=== PATIENT | female | born 1940 | race Caucasian/White ===

== ENCOUNTER 2019-12-15 15:38 | Inpatient (IN) ==
--- OUTSIDE RECORDS SUMMARY | 2019-12-15 15:43 | External Medical Summary | Continuity of Care Document ---
:1940 Author Name Aysha Estes, Provider Address Unavailable Unavailable , Care Team Providers Name Role Phone Unavailable Unavailable Unavailable PCP, UNKNOWN Unavailable Unavailable Problems Active medical history not documented Allergies and Adverse Reactions Allergy history not documented Medications Medications not documented Procedures Procedures not documented Immunizations Immunizations not documented Plan of Treatment Planned Observations Planned Goals not documented Results No Known Results Results not documented
[2019-12-15] MEDS ORDERED: SODIUM CHLORIDE 0.9% 1000ML 1,000 ML IV ONE (15:54)
[2019-12-15] MEDS ORDERED: LEVOFLOXACIN/D5W 750 MG/150 ML BAG IV STA (15:56)
[2019-12-15] MEDS ORDERED: cefTRIAXone SODIUM 1,000 MG/50 ML BAG IV STA (15:56)
--- NOTE | 2019-12-15 16:07 | Emergency Department Note ---
Impression & Plan Sepsis, PSP (progressive supranuclear palsy), Aspiration pneumonia, Elevated lactic acid level ED Provider Note NAME: CANDY HOUSTON AGE: 79 SEX: F : 1940 ARRIVES VIA: Walk-In INFORMANT: Patient ED PROVIDER(S): Robbi Cage DO CHIEF COMPLAINT: Pain and weakness HPI: Patient is a 79-year-old female with progressive supranuclear palsy presents the ER with her daughter at bedside. Patient has been moaning more than usual. She has not had a bowel movement in the past week. Patient and daughter deny any headache, cough, or runny nose. Patient denies any chest pain. She does admit to belly pain. She is unable to localize or verbalize anything else. Family member notes no bowel movement for the past week. She admits to pain with urination as well. History is limited secondary to patient being nonverbal and mentation. ROS: History is limited secondary to progressive supranuclear palsy PAST MEDICAL HISTORY:See Below PAST SURGICAL HISTORY:See Below FAMILY HISTORY:See Below SOCIAL HISTORY:See Below HOME MEDICATIONS:See Below ALLERGIES:See Below VITALS:See Below PHYSICAL EXAMINATION: GENERAL: Ill-appearing, cachectic, sitting up in bed on nasal cannula EYE EXAM: normal conjunctiva. OROPHARYNX: mucous membranes are dry NECK: supple, no nuchal rigidity, no adenopathy, non-tender LUNGS: Rhonchi bilaterally. Normal chest wall mechanics HEART: Tachycardic, S1 normal and S2 normal ABDOMEN: abdomen soft, non-tender, normo-active bowel sounds, no masses, no rebound or guarding. BACK: Back is symmetrical on inspection and there is no deformity, no midline tenderness, no CVA tenderness. UPPER EXTREMITIES: upper extremities are grossly normal. LOWER EXTREMITIES: No pitting edema. NEURO EXAM: Awake intermittently answering questions yes or no. MEDICAL DECISION MAKING: Patient is a 79-year-old female chronically ill-appearing with a past medical history of PSP the presents the ER hypoxic, tachycardic and slightly hypotensive. IV was established blood work was obtained. Patient was placed on nasal cannula. Pulse ox came up from 80 to 95%. Labs show no significant leukocytosis but a mild anemia at 11. INR was unremarkable. BMP with a slightly elevated CO2 of 58. BMP with a creatinine of 0.53. Lactate was elevated 2.4. LFTs bilirubin and troponin were unremarkable. UA was negative. Chest x-ray shows a right lower lobe infiltrate which I do favor secondary to aspiration as she has trouble swallowing. CT abdomen pelvis shows a large amount of constipation and pneumonia. Patient was given IV Levaquin and Rocephin. Patient was given 1 L IV fluids and heart rate trended down from 1 30-100. Family was updated bedside patient was admitted for further work-up. Triage Nursing notes reviewed. Prior medical records reviewed Vital Signs: reviewed and remarkable for hypoxic, tachycardic Differential diagnosis: Differential diagnosis includes etiologies such as sepsis, UTI, pneumonia, metabolic, electrolyte abnormalities, cardiac sources, intracerebral event, toxicologic, neurological, as well as others were entertained. ER treatment provided: See below Diagnostics interpreted by me: ECG: Sinus tachycardia rate of 129 Normal axis No PVCs ST depressions in the lateral leads DWI in the high lateral leads LVH Cardiac Monitoring: An order was placed for continuous cardiac monitoring. The monitor shows a rate of 128 with sinus rhythm. Laboratory studies: As stated above and show below. Imaging studies: Portable AP upright 1 view of the chest shows focal right lower lobe infiltrate CT abdomen pelvis shows large amount of constipation and pneumonia Consultation(s): Discussed with hospitalist for admission ED COURSE: Procedures: none Critical Care: I have personally spent 40 minutes of critical care time in the direct management of this patient. This includes bedside care, interpretation of diagnostic studies, and testing, discussion with consultants, patient, and family members, and other required patient management activities. This 40 minutes is in excess of all separately billable procedures. Past Med/Surg History Social History Smoking Status: Unknown if ever smoked Allergies Allergies Allergy/AdvReac Type Severity Reaction Status Date / Time adhesive Allergy Unknown TAPE - RXN Verified 12/15/19 16:22 UNKNOWN aspirin Allergy Unknown UNKN Verified 12/15/19 16:22 capsaicin Allergy Unknown UNKNOWN Verified 12/15/19 16:22 diclofenac Allergy Unknown UNKNOWN Verified 12/15/19 16:22 Diclopak Allergy Unknown UNKNOWN Verified 05/24/13 13:06 ibuprofen Allergy Unknown CHANGE IN Verified 12/15/19 16:22 MENTAL STATUS latex Allergy Unknown UNKNOWN Verified 12/15/19 16:22 naproxen Allergy Unknown CHANGE IN Verified 12/15/19 16:22 MENTAL STATUS,MADE FEEL CRAZY Home Meds Home Medications Medication Instructions Recorded Confirmed acetaminophen [Acetaminophen Extra 500 - 1,000 mg PO TID PRN 12/15/19 12/15/19 Strength] carbidopa-levodopa 0.5 tab PO DAILY 12/15/19 12/15/19 carbidopa-levodopa 1 tab PO BID 12/15/19 12/15/19 cholecalciferol (vitamin D3) 50 mcg PO DAILY 12/15/19 12/15/19 docusate sodium [Colace] 100 mg PO QAM PRN 12/15/19 12/15/19 levothyroxine [Synthroid] 25 mcg PO QAM 12/15/19 12/15/19 lorazepam 0.5 mg PO DAILY PRN 12/15/19 12/15/19 magnesium hydroxide [Milk of 30 ml PO QAM PRN 12/15/19 12/15/19 Magnesia] quetiapine 25 mg PO QAM 12/15/19 12/15/19 quetiapine 50 mg PO BID 12/15/19 12/15/19 scopolamine base 1 patch TRANSDERMAL UD 12/15/19 12/15/19 Results & Data (ED) Vital Signs Vital Signs - 24 hr 12/15/19 15:41 12/15/19 15:48 12/15/19 15:52 Temperature 37.4 C Temperature Source Oral Pulse Rate 131 H 131 H 130 H Pulse Rate from SpO2 Sensor Respiratory Rate 10 L Respiratory Depth Normal Blood Pressure 99/61 L 92/60 L Blood Pressure Mean 73 75 Pulse Oximetry 81 L Oxygen Delivery Method Room Air Oxygen Flow Rate Sepsis Recent Fever Within 48 Hours No Sepsis New/Unexplained Change in Mental Status No Sepsis Action Taken by Nursing Physician Notified 12/15/19 16:00 12/15/19 16:30 12/15/19 16:45 Temperature Temperature Source Pulse Rate 124 H 119 H 113 H Pulse Rate from SpO2 Sensor 130 H 120 H 111 H Respiratory Rate Respiratory Depth Blood Pressure 99/75 L 127/94 Blood Pressure Mean 83 108 Pulse Oximetry 99 100 100 Oxygen Delivery Method Oxygen Flow Rate Sepsis Recent Fever Within 48 Hours Sepsis New/Unexplained Change in Mental Status Sepsis Action Taken by Nursing 12/15/19 16:57 12/15/19 17:00 12/15/19 17:15 Temperature 36.7 C Temperature Source Rectal Pulse Rate 112 H 110 H Pulse Rate from SpO2 Sensor 111 H 112 H Respiratory Rate Respiratory Depth Blood Pressure 126/69 Blood Pressure Mean 88 Pulse Oximetry 100 100 Oxygen Delivery Method Oxygen Flow Rate Sepsis Recent Fever Within 48 Hours Sepsis New/Unexplained Change in Mental Status Sepsis Action Taken by Nursing 12/15/19 17:30 12/15/19 17:45 12/15/19 18:00 Temperature Temperature Source Pulse Rate 108 H 109 H 106 H Pulse Rate from SpO2 Sensor 107 H 106 H 107 H Respiratory Rate Respiratory Depth Blood Pressure 113/68 104/65 Blood Pressure Mean 84 84 Pulse Oximetry 100 92 100 Oxygen Delivery Method Oxygen Flow Rate Sepsis Recent Fever Within 48 Hours Sepsis New/Unexplained Change in Mental Status Sepsis Action Taken by Nursing 12/15/19 18:15 12/15/19 18:30 12/15/19 19:00 Temperature Temperature Source Pulse Rate 105 H 109 H 107 H Pulse Rate from SpO2 Sensor 103 H 108 H 108 H Respiratory Rate Respiratory Depth Blood Pressure 112/69 114/72 Blood Pressure Mean 84 84 Pulse Oximetry 100 100 100 Oxygen Delivery Method Nasal Cannula Oxygen Flow Rate 3 Sepsis Recent Fever Within 48 Hours Sepsis New/Unexplained Change in Mental Status Sepsis Action Taken by Nursing 12/15/19 19:30 12/15/19 20:00 Temperature Temperature Source Pulse Rate 103 H 102 H Pulse Rate from SpO2 Sensor 102 H 102 H Respiratory Rate 20 22 Respiratory Depth Blood Pressure 112/70 110/66 Blood Pressure Mean 84 76 Pulse Oximetry 100 100 Oxygen Delivery Method Nasal Cannula Nasal Cannula Oxygen Flow Rate 3 3 Sepsis Recent Fever Within 48 Hours Sepsis New/Unexplained Change in Mental Status Sepsis Action Taken by Nursing Laboratory Data Result diagrams: 12/15/19 16:00 12/15/19 16:00 Lab Results 12/15/19 12/15/19 12/15/19 Range/Units 16:00 16:00 16:00 WBC 8.54 (4.8-10.8) K/uL RBC 3.70 L (4.2-5.4) M/uL Hgb 11.4 L (12.0-16.0) g/dL POC Hgb (12.0-16.0) g/dl Hct 36.1 L (37-47) % POC Hct (37-47) % MCV 97.6 (80-100) fL MCH 30.8 (25-34) pg MCHC 31.6 L (32-36) g/dL RDW Std Deviation 53.1 H (36.4-46.3) fL RDW Coeff of Iliana 14.8 H (11.5-14.5) % Plt Count 319 (130-400) K/uL MPV 9.8 (7.4-10.4) fL Immature Gran % (Auto) 0.1 % Neut % (Auto) 92.7 % Lymph % (Auto) 3.7 % Snyder % (Auto) 3.4 % Eos % (Auto) 0.1 % Baso % (Auto) 0.0 % Neut # (Auto) 7.91 H (1.4-6.5) K/uL Lymph # (Auto) 0.32 L (1.2-3.4) K/uL Snyder # (Auto) 0.29 (0.11-0.59) K/uL Eos # (Auto) 0.01 (0-0.5) K/uL Baso # (Auto) 0.00 (0-0.2) K/uL Immature Gran # (Auto) 0.01 (0.00-0.02) K/uL PT 11.5 (9.0-12.0) Seconds INR 1.1 (0.9-1.1) APTT 29.6 (21.0-31.0) Seconds PTT Ratio 1.1 VBG pH (7.36-7.41) VBG pCO2 (38-50) mmHg VBG pO2 mmHg VBG HCO3 mmol/L VBG O2 Saturation % VBG Base Excess mEq/L Barometric Pressure mm/Hg POC Sodium (135-144) mmol/L Sodium 141 (136-145) mmol/L POC Potassium (3.3-5.0) mmol/L Potassium 4.3 (3.5-5.1) mmol/L POC Chloride (101-112) mmol/L Chloride 106 (98-107) mmol/L Carbon Dioxide 29 (21-32) mmol/L POC Total CO2 (24-31) mmol/L Anion Gap 6.0 (3-11) POC Anion Gap (16-25) mmol/L POC BUN (7-18) mg/dl BUN 20 H (7-18) mg/dl Creatinine 0.53 L (0.6-1.2) mg/dl POC Creatinine (0.6-1.3) mg/dl Est Cr Clr Drug Dosing Not Reportable Est GFR ( Amer) 104.7 Est GFR (Non-Af Amer) 90.3 BUN/Creatinine Ratio 37.0 H (10-20) Glucose 103 H (70-99) mg/dl POC Glucose (other) (70-99) mg/dl Lactate (0.4-2.0) mmol/L Calcium 9.2 (8.5-10.1) mg/dl POC Ioniz Calcium Carin (1.12-1.32) mmol/l Magnesium 2.5 H (1.8-2.4) mg/dl Total Bilirubin 0.5 (0.2-1) mg/dl AST 39 H (15-37) U/L ALT 23 (12-78) U/L Alkaline Phosphatase 150 H (45-117) U/L Troponin I < 0.015 (0-0.045) ng/ml Total Protein 7.6 (6.4-8.2) gm/dl Albumin 2.8 L (3.4-5.0) gm/dl Globulin 4.8 H (2.5-4.0) gm/dl Albumin/Globulin Ratio 0.6 L (0.9-2) Urine Color Urine Appearance (Clear) Urine pH (4.5-7.5) Ur Specific [place] (1.000-1.030) Urine Protein (Negative) Urine Glucose (UA) (Negative) Urine Ketones (Negative) Urine Blood (Negative) Urine Nitrite (Negative) Urine Bilirubin (Negative) Urine Urobilinogen (Negative) Ur Leukocyte Esterase (Negative) COVID-19 Eval Order COVID-19 PCR (Negative) 12/15/19 12/15/19 12/15/19 Range/Units 16:05 16:09 16:46 WBC (4.8-10.8) K/uL RBC (4.2-5.4) M/uL Hgb (12.0-16.0) g/dL POC Hgb 12.9 (12.0-16.0) g/dl Hct (37-47) % POC Hct 38 (37-47) % MCV (80-100) fL MCH (25-34) pg MCHC (32-36) g/dL RDW Std Deviation (36.4-46.3) fL RDW Coeff of Iliana (11.5-14.5) % Plt Count (130-400) K/uL MPV (7.4-10.4) fL Immature Gran % (Auto) % Neut % (Auto) % Lymph % (Auto) % Snyder % (Auto) % Eos % (Auto) % Baso % (Auto) % Neut # (Auto) (1.4-6.5) K/uL Lymph # (Auto) (1.2-3.4) K/uL Snyder # (Auto) (0.11-0.59) K/uL Eos # (Auto) (0-0.5) K/uL Baso # (Auto) (0-0.2) K/uL Immature Gran # (Auto) (0.00-0.02) K/uL PT (9.0-12.0) Seconds INR (0.9-1.1) APTT (21.0-31.0) Seconds PTT Ratio VBG pH (7.36-7.41) VBG pCO2 (38-50) mmHg VBG pO2 mmHg VBG HCO3 mmol/L VBG O2 Saturation % VBG Base Excess mEq/L Barometric Pressure mm/Hg POC Sodium 140 (135-144) mmol/L Sodium (136-145) mmol/L POC Potassium 4.2 (3.3-5.0) mmol/L Potassium (3.5-5.1) mmol/L POC Chloride 101 (101-112) mmol/L Chloride (98-107) mmol/L Carbon Dioxide (21-32) mmol/L POC Total CO2 28 (24-31) mmol/L Anion Gap (3-11) POC Anion Gap 16.0 (16-25) mmol/L POC BUN 21 H (7-18) mg/dl BUN (7-18) mg/dl Creatinine (0.6-1.2) mg/dl POC Creatinine 0.4 L (0.6-1.3) mg/dl Est Cr Clr Drug Dosing Est GFR ( Amer) Est GFR (Non-Af Amer) BUN/Creatinine Ratio (10-20) Glucose (70-99) mg/dl POC Glucose (other) 109 H (70-99) mg/dl Lactate 2.9 H* (0.4-2.0) mmol/L Calcium (8.5-10.1) mg/dl POC Ioniz Calcium Carin 1.29 (1.12-1.32) mmol/l Magnesium (1.8-2.4) mg/dl Total Bilirubin (0.2-1) mg/dl AST (15-37) U/L ALT (12-78) U/L Alkaline Phosphatase (45-117) U/L Troponin I (0-0.045) ng/ml Total Protein (6.4-8.2) gm/dl Albumin (3.4-5.0) gm/dl Globulin (2.5-4.0) gm/dl Albumin/Globulin Ratio (0.9-2) Urine Color Yellow Urine Appearance Clear (Clear) Urine pH 7.0 (4.5-7.5) Ur Specific [place] 1.010 (1.000-1.030) Urine Protein Negative (Negative) Urine Glucose (UA) Negative (Negative) Urine Ketones Negative (Negative) Urine Blood Negative (Negative) Urine Nitrite Negative (Negative) Urine Bilirubin Negative (Negative) Urine Urobilinogen Negative (Negative) Ur Leukocyte Esterase Negative (Negative) COVID-19 Eval Order COVID-19 PCR (Negative) 12/15/19 12/15/19 12/15/19 Range/Units 16:46 18:35 18:35 WBC (4.8-10.8) K/uL RBC (4.2-5.4) M/uL Hgb (12.0-16.0) g/dL POC Hgb (12.0-16.0) g/dl Hct (37-47) % POC Hct (37-47) % MCV (80-100) fL MCH (25-34) pg MCHC (32-36) g/dL RDW Std Deviation (36.4-46.3) fL RDW Coeff of Iliana (11.5-14.5) % Plt Count (130-400) K/uL MPV (7.4-10.4) fL Immature Gran % (Auto) % Neut % (Auto) % Lymph % (Auto) % Snyder % (Auto) % Eos % (Auto) % Baso % (Auto) % Neut # (Auto) (1.4-6.5) K/uL Lymph # (Auto) (1.2-3.4) K/uL Snyder # (Auto) (0.11-0.59) K/uL Eos # (Auto) (0-0.5) K/uL Baso # (Auto) (0-0.2) K/uL Immature Gran # (Auto) (0.00-0.02) K/uL PT (9.0-12.0) Seconds INR (0.9-1.1) APTT (21.0-31.0) Seconds PTT Ratio VBG pH 7.32 L (7.36-7.41) VBG pCO2 58 H (38-50) mmHg VBG pO2 27 mmHg VBG HCO3 29 mmol/L VBG O2 Saturation < 60.0 % VBG Base Excess 2.4 mEq/L Barometric Pressure 731.4 mm/Hg POC Sodium (135-144) mmol/L Sodium (136-145) mmol/L POC Potassium (3.3-5.0) mmol/L Potassium (3.5-5.1) mmol/L POC Chloride (101-112) mmol/L Chloride (98-107) mmol/L Carbon Dioxide (21-32) mmol/L POC Total CO2 (24-31) mmol/L Anion Gap (3-11) POC Anion Gap (16-25) mmol/L POC BUN (7-18) mg/dl BUN (7-18) mg/dl Creatinine (0.6-1.2) mg/dl POC Creatinine (0.6-1.3) mg/dl Est Cr Clr Drug Dosing Est GFR ( Amer) Est GFR (Non-Af Amer) BUN/Creatinine Ratio (10-20) Glucose (70-99) mg/dl POC Glucose (other) (70-99) mg/dl Lactate (0.4-2.0) mmol/L Calcium (8.5-10.1) mg/dl POC Ioniz Calcium Carin (1.12-1.32) mmol/l Magnesium (1.8-2.4) mg/dl Total Bilirubin (0.2-1) mg/dl AST (15-37) U/L ALT (12-78) U/L Alkaline Phosphatase (45-117) U/L Troponin I (0-0.045) ng/ml Total Protein (6.4-8.2) gm/dl Albumin (3.4-5.0) gm/dl Globulin (2.5-4.0) gm/dl Albumin/Globulin Ratio (0.9-2) Urine Color Urine Appearance (Clear) Urine pH (4.5-7.5) Ur Specific [place] (1.000-1.030) Urine Protein (Negative) Urine Glucose (UA) (Negative) Urine Ketones (Negative) Urine Blood (Negative) Urine Nitrite (Negative) Urine Bilirubin (Negative) Urine Urobilinogen (Negative) Ur Leukocyte Esterase (Negative) COVID-19 Eval Order Covid19 Done at [facility] COVID-19 PCR NEGATIVE (Negative) 12/15/19 Range/Units 18:43 WBC (4.8-10.8) K/uL RBC (4.2-5.4) M/uL Hgb (12.0-16.0) g/dL POC Hgb (12.0-16.0) g/dl Hct (37-47) % POC Hct (37-47) % MCV (80-100) fL MCH (25-34) pg MCHC (32-36) g/dL RDW Std Deviation (36.4-46.3) fL RDW Coeff of Iliana (11.5-14.5) % Plt Count (130-400) K/uL MPV (7.4-10.4) fL Immature Gran % (Auto) % Neut % (Auto) % Lymph % (Auto) % Snyder % (Auto) % Eos % (Auto) % Baso % (Auto) % Neut # (Auto) (1.4-6.5) K/uL Lymph # (Auto) (1.2-3.4) K/uL Snyder # (Auto) (0.11-0.59) K/uL Eos # (Auto) (0-0.5) K/uL Baso # (Auto) (0-0.2) K/uL Immature Gran # (Auto) (0.00-0.02) K/uL PT (9.0-12.0) Seconds INR (0.9-1.1) APTT (21.0-31.0) Seconds PTT Ratio VBG pH (7.36-7.41) VBG pCO2 (38-50) mmHg VBG pO2 mmHg VBG HCO3 mmol/L VBG O2 Saturation % VBG Base Excess mEq/L Barometric Pressure mm/Hg POC Sodium (135-144) mmol/L Sodium (136-145) mmol/L POC Potassium (3.3-5.0) mmol/L Potassium (3.5-5.1) mmol/L POC Chloride (101-112) mmol/L Chloride (98-107) mmol/L Carbon Dioxide (21-32) mmol/L POC Total CO2 (24-31) mmol/L Anion Gap (3-11) POC Anion Gap (16-25) mmol/L POC BUN (7-18) mg/dl BUN (7-18) mg/dl Creatinine (0.6-1.2) mg/dl POC Creatinine (0.6-1.3) mg/dl Est Cr Clr Drug Dosing Est GFR ( Amer) Est GFR (Non-Af Amer) BUN/Creatinine Ratio (10-20) Glucose (70-99) mg/dl POC Glucose (other) (70-99) mg/dl Lactate 2.4 H* (0.4-2.0) mmol/L Calcium (8.5-10.1) mg/dl POC Ioniz Calcium Carin (1.12-1.32) mmol/l Magnesium (1.8-2.4) mg/dl Total Bilirubin (0.2-1) mg/dl AST (15-37) U/L ALT (12-78) U/L Alkaline Phosphatase (45-117) U/L Troponin I (0-0.045) ng/ml Total Protein (6.4-8.2) gm/dl Albumin (3.4-5.0) gm/dl Globulin (2.5-4.0) gm/dl Albumin/Globulin Ratio (0.9-2) Urine Color Urine Appearance (Clear) Urine pH (4.5-7.5) Ur Specific [place] (1.000-1.030) Urine Protein (Negative) Urine Glucose (UA) (Negative) Urine Ketones (Negative) Urine Blood (Negative) Urine Nitrite (Negative) Urine Bilirubin (Negative) Urine Urobilinogen (Negative) Ur Leukocyte Esterase (Negative) COVID-19 Eval Order COVID-19 PCR (Negative) Administered Medications Discontinued Medications Sodium Chloride (Nss 1000ml) 1,000 mls @ 999 mls/hr IV .[id number] ONE Stop: 12/15/19 16:54 Last Infusion: 12/15/19 18:00 Dose: 0 mls/hr Documented by: [id number] Admin: 08/15/20 16:51 Dose: 999 mls/hr Documented by: [id number] Ceftriaxone Sodium (Rocephin) 1,000 mg in 50 mls @ 100 mls/hr IV NOW STA Stop: 12/15/19 16:25 Last Infusion: 12/15/19 17:30 Dose: 0 mls/hr Documented by: [id number] Admin: 12/15/19 16:52 Dose: 100 mls/hr Documented by: [id number] Levofloxacin/Dextrose (Levaquin/D5w) 750 mg in 150 mls @ 100 mls/hr IV NOW STA Stop: 12/15/19 17:25 Last Infusion: 12/15/19 18:22 Dose: 0 mls/hr Documented by: [id number] Admin: 12/15/19 16:52 Dose: 100 mls/hr Documented by: [id number] Ioversol (Ioversol 100ml) 93 ml IV ONCE ONE Stop: 12/15/19 16:24 Last Admin: 12/15/19 16:23 Dose: 93 ml Documented by: [id number] Discharge Plan Visit Data Chief Complaint: Illness Stated Complaint: ILLNESS ED Provider: Robbi Cage Discharge Problem: Sepsis, PSP (progressive supranuclear palsy), Aspiration pneumonia, Elevated lactic acid level Forms Stand Alone Forms: [facility] Prescriptions Prescriptions: No Action levothyroxine [Synthroid] 25 mcg tablet 25 mcg PO QAM RF: 0 acetaminophen [Acetaminophen Extra Strength] 500 mg Tablet 500 - 1,000 mg PO TID PRN (Reason: Fever Or Pain) RF: 0 lorazepam 0.5 mg tablet 0.5 mg PO DAILY PRN (Reason: Anxiety) RF: 0 scopolamine base 1 mg over 3 days patch 3 day 1 patch transdermal UD RF: 0 quetiapine 50 mg tablet 25 mg PO QAM RF: 0 cholecalciferol (vitamin D3) 50 mcg (2,000 unit) Tablet 50 mcg PO DAILY RF: 0 magnesium hydroxide [Milk of Magnesia] 400 mg/5 mL Suspension 30 ml PO QAM PRN (Reason: Constipation) RF: 0 docusate sodium [Colace] 100 mg Capsule 100 mg PO QAM PRN (Reason: Constipation) RF: 0 carbidopa-levodopa 25-100 mg tablet 1 tab PO BID RF: 0 carbidopa-levodopa 25-100 mg tablet 0.5 tab PO DAILY RF: 0 quetiapine 50 mg tablet 50 mg PO BID RF: 0 Discharge Problem: Sepsis Qualifiers: Sepsis type: sepsis due to unspecified organism Sepsis acute organ dysfunction status: unspecified Qualified Code(s): A41.9 - Sepsis, unspecified organism Aspiration pneumonia Qualifiers: Aspiration pneumonia type: unspecified Laterality: right Lung location: unspecified part of lung Qualified Code(s): J69.0 - Pneumonitis due to inhalation of food and vomit
[2019-12-15 16:21] LABS: iSTAT Creatinine 0.4 mg/dl (0.6-1.3); iSTAT Hemoglobin 12.9 g/dl (12.0-16.0); iSTAT Ionized Calcium 1.29 mmol/l (1.12-1.32); iSTAT Potassium 4.2 mmol/L (3.3-5.0)
[2019-12-15] MEDS ORDERED: IOVERSOL 100ml IV ONE (16:23)
[2019-12-15 16:25] LABS: Eosinophils # (auto) 0.01 K/uL (0-0.5); Eosinophils % (auto) 0.1 %; Hematocrit (blood only) 36.1 % (37-47); Hemoglobin 11.4 g/dL (12.0-16.0); Immature Granulocytes # (auto) 0.01 K/uL (0.00-0.02); Immature Granulocytes % (auto) 0.1 %; Lymphocytes # (auto) 0.32 K/uL (1.2-3.4); Lymphocytes % (auto) 3.7 %; Mean Corpuscular Hemoglobin 30.8 pg (25-34); Mean Corpuscular Hgb Conc 31.6 g/dL (32-36); Mean Corpuscular Volume 97.6 fL (80-100); Mean Platelet Volume 9.8 fL (7.4-10.4); Monocytes # (auto) 0.29 K/uL (0.11-0.59); Monocytes % (auto) 3.4 %; Neutrophils # (auto) 7.91 K/uL (1.4-6.5); Neutrophils % (auto) 92.7 %; Platelet Count 319 K/uL (130-400); RDW Coefficient of Variation 14.8 % (11.5-14.5); RDW Standard Deviation 53.1 fL (36.4-46.3); White Blood Count 8.54 K/uL (4.8-10.8)
[2019-12-15 16:26] LABS: Appearance Urine Clear (Clear); Bilirubin Urine Negative (Negative); Blood Urine Negative (Negative); Color Urine Yellow; Glucose Urine UA Negative (Negative); Ketones Urine Negative (Negative); Leukocyte Esterase Urine Negative (Negative); Nitrite Urine Negative (Negative); Protein Urine Negative (Negative); Urobilinogen Urine Negative (Negative)
--- NOTE | 2019-12-15 16:29 | XRay Report ---
XR chest 1V portable CLINICAL HISTORY: SEPSIS COMPARISON STUDY: 05/28/2013 FINDINGS: The patient is hyperinflated. The heart is normal in size. There are right lower lobe airsp adamaris opacities consistent with a pneumonia. There is no overt failure. There are no pleural effusions. [ IMPRESSION: Right lower lobe airspace opacities suspicious for pneumonia. Films subsequent to treatme nt are recommended in follow-up. ACT 112: Negative or not required by law. Electronically signed by: Eric Wu M.D. 12/15/2019 4:28 PM
[2019-12-15 16:38] LABS: INR 1.1 (0.9-1.1); Partial Thromboplastin Ratio 1.1; Partial Thromboplastin Time 29.6 Seconds (21.0-31.0); Prothrombin Time 11.5 Seconds (9.0-12.0)
[2019-12-15 16:46] LABS: Alanine Aminotransferase 23 U/L (12-78); Albumin Level 2.8 gm/dl (3.4-5.0); Aspartate Aminotransferase 39 U/L (15-37); Blood Urea Nitrogen 20 mg/dl (7-18); Calcium 9.2 mg/dl (8.5-10.1); Carbon Dioxide 29 mmol/L (21-32); Chloride 106 mmol/L (98-107); Est GFR (African American) 104.7; Est GFR (Non-African American) 90.3; Glucose 103 mg/dl (70-99); Magnesium 2.5 mg/dl (1.8-2.4); Potassium 4.3 mmol/L (3.5-5.1); Sodium 141 mmol/L (136-145)
--- NOTE | 2019-12-15 16:50 | CT Scan Report ---
CT abd pelvis IV con only CLINICAL HISTORY: abd pain SEPSIS COMPARISON STUDY: None. TECHNIQUE: Patient was scanned in a dynamic helical fashion during intravenous administration of 93 c c of Optiray 320 A dose lowering technique was utilized adhering to the principles of ALARA. CT DOSE: 367.02 mGy.cm FINDINGS: Lower chest: There are multilobar airspace opacities, most pronounced in the right lower lobe. The fi ndings are suspicious for a multifocal pneumonia. There is multifocal bronchial wall thickening and m ucous plugging Liver: No focal hepatic masses are visualized. There is mild central biliary ductal prominence, likel y secondary to a prior cholecystectomy. Gallbladder: Surgically absent Spleen: Normal in size and attenuation. Pancreas: Unremarkable. Adrenal glands: Unremarkable. Kidneys: There is a 46 mm upper pole left renal cyst. Smaller renal hypodensities are felt to represe nt additional cysts. There is no significant hydronephrosis. Bowel: Bowel evaluation is limited given the paucity of intra-abdominal fat and the lack of orally ad ministered contrast. There is mild gastric and duodenal distention, with a duodenal transition zone a t the level of the midline. This may be secondary to compression in the supine position aorta spine c ross over. There is moderate colonic stool. Correlate clinically with constipation. There is no evide nce of acute diverticulitis. Peritoneum: There is no intraperitoneal free air or abdominal ascites. Vasculature: The abdominal aorta is normal in course and caliber. Adenopathy: None. Pelvic viscera: The uterus appears surgically absent. There is pelvic floor relaxation Skeletal structures: There is a bipolar right hip arthroplasty. IMPRESSION: 1. Multifocal pulmonary airspace opacities most pronounced within the right lower lobe. The findings likely representing multifocal pneumonia 2. Duodenal gastric distention with a duodenal transition zone near the midline. This may be secondar y to compression in the supine position at the aorta/spine cross over 3. Moderate fecal retention. Correlate clinically with regards to constipation ACT 112: Negative or not required by law. Electronically signed by: Eric Wu M.D. 12/15/2019 4:48 PM
[2019-12-15 16:51] LABS: Albumin Globulin Ratio 0.6 (0.9-2); Alkaline Phosphatase 150 U/L (45-117); Bilirubin,Total 0.5 mg/dl (0.2-1); Globulin 4.8 gm/dl (2.5-4.0); Total Protein 7.6 gm/dl (6.4-8.2); Troponin I < 0.015 ng/ml (0-0.045)
[2019-12-15 17:00] LABS: Base Excess VBG 2.4 mEq/L; HCO3 VBG 29 mmol/L; Oxygen Saturation VBG < 60.0 %; PCO2 VBG 58 mmHg (38-50); PO2 VBG 27 mmHg; pH VBG 7.32 (7.36-7.41)
--- NOTE | 2019-12-15 18:12 | History & Physical Report ---
Date of Service December 15, 2019 Assessment & Plan (1) Sepsis: Likely 2/2 aspiration pneumonia. Lactate is up and will trend this once more tonight. Fluids and antibiotics started in the ER. Family feels her mentation is at baseline although she is more exhausted at this point after a very full day. Cont abx now and avoid more fluids currently to avoid fluid overload in setting of hypoxia. Normal urinalysis. No obvious skin wounds. (2) Hypoxia: 2/2 aspiration pneumonia. (3) Aspiration pneumonia: Possible gram negative pneumonia 2/2 significant and consistent aspiration events in recent weeks. She has recently gotten Scopalamine to help with secretions. At home she constantly coughs and chokes on oral intake. Adjust to Unasyn 3gm q8h. Blood cultures pending. Consult speech path for formal evaluation in am. (4) PSP (progressive supranuclear palsy): Causes difficulty in swallowing so consulting speech in am. Cont supportive care. (5) Osteoporosis: Calcium supplentation (6) Severe malnutrition: Consulted Livestock Nutritionist, appreciate recommendations (7) Hypothyroidism: tsh pending in am. Cont home Synthroid (8) Dysphagia: chronic, speech eval as noted above. (9) Parkinsons disease: Cont Sinemet per home regimen. (10) Chronic psychosis: Cont home seroquel (11) Constipation: Bisacodyl supp PRN (12) DVT prophylaxis: HEparin DNR as discussed with patient and family during admission. Family requested no aggressive life prolonging measures including no intubation and no CPR. Vague thoughts regarding BIPAP. Would recommending discussion with family if time permits. Tele transfer Martine Tse DO [facility] Hospitalist History of Present Illness Primary Care Provider: Kassandra Johnson MD 79 yo F with progressive nuclear palsy who has difficulty with expressing herself verbally, was moaning and making distress sound to her kids who are her main caretakers. She was having dysphagia and multiple issues of choking and coughing in tje last few weeks. She was recently put on scopalamine to help with excessive secretions. She has not had a BM in a week and was backed up on imaging. The patient appears exhausted and generally very weak. Allergies Allergy/AdvReac Type Severity Reaction Status Date / Time adhesive Allergy Unknown TAPE - RXN Verified 12/15/19 16:22 UNKNOWN aspirin Allergy Unknown UNKN Verified 12/15/19 16:22 capsaicin Allergy Unknown UNKNOWN Verified 12/15/19 16:22 diclofenac Allergy Unknown UNKNOWN Verified 12/15/19 16:22 Diclopak Allergy Unknown UNKNOWN Verified 05/24/13 13:06 ibuprofen Allergy Unknown CHANGE IN Verified 12/15/19 16:22 MENTAL STATUS latex Allergy Unknown UNKNOWN Verified 12/15/19 16:22 naproxen Allergy Unknown CHANGE IN Verified 12/15/19 16:22 MENTAL STATUS,MADE FEEL CRAZY Home Medications Home Medications Medication Instructions Recorded Confirmed Type acetaminophen [Acetaminophen Extra 500 - 1,000 mg PO TID PRN 12/15/19 12/15/19 History Strength] bisacodyl 10 mg TN DAILY PRN 12/15/19 12/15/19 History carbidopa-levodopa 0.5 tab PO DAILY@1500 12/15/19 12/15/19 History carbidopa-levodopa 1 tab PO BID 12/15/19 12/15/19 History cholecalciferol (vitamin D3) 50 mcg PO DAILY 12/15/19 12/15/19 History docusate sodium [Colace] 100 mg PO QAM PRN 12/15/19 12/15/19 History levothyroxine [Synthroid] 25 mcg PO DAILYBB 12/15/19 12/15/19 History lorazepam 0.5 mg PO DAILY PRN 12/15/19 12/15/19 History magnesium hydroxide [Milk of 30 ml PO QAM PRN 12/15/19 12/15/19 History Magnesia] quetiapine 25 mg PO QAM 12/15/19 12/15/19 History quetiapine 50 mg PO BID@1500,2100 12/15/19 12/15/19 History scopolamine base 1 patch TRANSDERMAL UD 12/15/19 12/15/19 History Past Med/Surg History Medical History (Updated 12/16/19 @ 01:16 by Martine Tse DO) Chronic psychosis Constipation Dysphagia Hypothyroidism Osteoporosis Parkinsons disease Severe malnutrition Social History Smoking Status: Never smoker Hx Alcohol Use: No Hx Substance Use: No Preferred Language: Armenian Communication Ability: Impaired Billing Specialist Required: No Beliefs That Will Affect Care: None Current Living Situation: Family Other Information That Helps Us Care for You: No Feels Safe at Home: Yes Safety Concerns: Feels Safe At This Time Review of Systems Review of Systems: Unobtainable due to cognitive status Physical Exam Physical Exam: CONSTITUTIONAL: thin, elderly and frail, vitals as above, generally ill-appearing EYES: normal conjunctivae, no scleral icterus NECK: trachea midline RESPIRATORY: clear to auscultation bilaterally, no crackles, rales or wheezes, normal to decreased respiratory effort. Limited exam as patient in unable to follow directions well CARDIOVASCULAR: regular rate and rhythm, S1 and 2 heard without murmurs, gallops or rubs, no JVD GASTROINTESTINAL: normal bowel sounds, soft, nontender, ND, no guarding MUSCULOSKELETAL: strength 5/5 throughout, head is normocephalic and atraumatic, neck supple, normal palpation of chest wall without tenderness SKIN: warm and dry NEUROLOGIC: patellar DTRs were not elicited but were attempted. No facial palsy, no dysarthria. Touch, pain and proprioception normal, abnormal cognition, abnormal speech, no tremor PSYCHIATRIC: disoriented. Results & Data Results & Data ([facility]) Vital Signs (Past 12 Hours) Vital Signs Temp Pulse Resp BP Pulse Ox 12/15/19 16:57 36.7 C 12/15/19 15:41 37.4 C 131 H 10 L 99/61 L 81 L Laboratory Results Short CBC 12/15/19 Range/Units 16:00 WBC 8.54 (4.8-10.8) K/uL Hgb 11.4 L (12.0-16.0) g/dL Hct 36.1 L (37-47) % Plt Count 319 (130-400) K/uL BMP 12/15/19 16:00 Sodium 141 Potassium 4.3 Chloride 106 Carbon Dioxide 29 BUN 20 H Creatinine 0.53 L Glucose 103 H Calcium 9.2 Cardiac Enzymes 12/15/19 Range/Units 16:00 Troponin I < 0.015 (0-0.045) ng/ml Liver Function 12/15/19 Range/Units 16:00 Total Bilirubin 0.5 (0.2-1) mg/dl AST 39 H (15-37) U/L ALT 23 (12-78) U/L Alkaline Phosphatase 150 H (45-117) U/L Albumin 2.8 L (3.4-5.0) gm/dl Urine 12/15/19 Range/Units 16:05 Urine Color Yellow Urine Appearance Clear (Clear) Urine pH 7.0 (4.5-7.5) Ur Specific Valentine 1.010 (1.000-1.030) Urine Protein Negative (Negative) Urine Glucose (UA) Negative (Negative) Diagnostic Findings CT abd pelvis IV con only CLINICAL HISTORY: abd pain SEPSIS COMPARISON STUDY: None. TECHNIQUE: Patient was scanned in a dynamic helical fashion during intravenous administration of 93 cc of Optiray 320 A dose lowering technique was utilized adhering to the principles of ALARA. CT DOSE: 367.02 mGy.cm FINDINGS: Lower chest: There are multilobar airspace opacities, most pronounced in the right lower lobe. The findings are suspicious for a multifocal pneumonia. There is multifocal bronchial wall thickening and mucous plugging Liver: No focal hepatic masses are visualized. There is mild central biliary ductal prominence, likely secondary to a prior cholecystectomy. Gallbladder: Surgically absent Spleen: Normal in size and attenuation. Pancreas: Unremarkable. Adrenal glands: Unremarkable. Kidneys: There is a 46 mm upper pole left renal cyst. Smaller renal hypodensities are felt to represent additional cysts. There is no significant hydronephrosis. Bowel: Bowel evaluation is limited given the paucity of intra-abdominal fat and the lack of orally administered contrast. There is mild gastric and duodenal distention, with a duodenal transition zone at the level of the midline. This may be secondary to compression in the supine position aorta spine cross over. There is moderate colonic stool. Correlate clinically with constipation. There is no evidence of acute diverticulitis. Peritoneum: There is no intraperitoneal free air or abdominal ascites. Vasculature: The abdominal aorta is normal in course and caliber. Adenopathy: None. Pelvic viscera: The uterus appears surgically absent. There is pelvic floor relaxation Skeletal structures: There is a bipolar right hip arthroplasty. IMPRESSION: 1. Multifocal pulmonary airspace opacities most pronounced within the right lower lobe. The findings likely representing multifocal pneumonia 2. Duodenal gastric distention with a duodenal transition zone near the midline. This may be secondary to compression in the supine position at the aorta/spine cross over 3. Moderate fecal retention. Correlate clinically with regards to constipation ------- XR chest 1V portable CLINICAL HISTORY: SEPSIS COMPARISON STUDY: 05/28/2013 FINDINGS: The patient is hyperinflated. The heart is normal in size. There are right lower lobe airspace opacities consistent with a pneumonia. There is no overt failure. There are no pleural effusions.[ IMPRESSION: Right lower lobe airspace opacities suspicious for pneumonia. Films subsequent to treatment are recommended in follow-up. (1) Aspiration pneumonia Aspiration pneumonia type: unspecified Laterality: right Lung location: unspecified part of lung Qualified Code(s): J69.0 - Pneumonitis due to inhalation of food and vomit (2) Sepsis Sepsis acute organ dysfunction status: unspecified Sepsis type: sepsis due to unspecified organism Qualified Code(s): A41.9 - Sepsis, unspecified organism
[2019-12-15] MEDS ORDERED: POLYETHYLENE (MIRALAX) 17 GM PACK PO PRN (22:30)
[2019-12-15] MEDS ORDERED: MAGNESIUM HYDROXIDE SUSP 30 ML UDC PO PRN (22:30)
[2019-12-16] MEDS: AMPICILLIN/SULBACTAM SOD 3,000 MG in 0.9 % SODIUM CHLORIDE 100 ML IV SCH ×4 (00:28→17:48)
[2019-12-16] MEDS: ACETAMINOPHEN SUSP 325 MG/10.15 ML UDC PO SCH ×3 (00:30→15:12)
[2019-12-16] MEDS: CHECK SCOPOLAMINE PATCH PLACEMENT SCH ×3 (00:33→15:11)
[2019-12-16] MEDS: ACETAMINOPHEN 65 ML IV PRN (02:07)
[2019-12-16 05:57] LABS: Hematocrit (blood only) 28.6 % (37-47); Hemoglobin 9.2 g/dL (12.0-16.0); Mean Corpuscular Hemoglobin 31.3 pg (25-34); Mean Corpuscular Hgb Conc 32.2 g/dL (32-36); Mean Corpuscular Volume 97.3 fL (80-100); Mean Platelet Volume 9.7 fL (7.4-10.4); Platelet Count 240 K/uL (130-400); RDW Coefficient of Variation 14.9 % (11.5-14.5); Red Blood Count 2.94 M/uL (4.2-5.4); White Blood Count 9.43 K/uL (4.8-10.8)
[2019-12-16 06:12] LABS: BUN Creatinine Ratio 42.7 (10-20); Calcium 8.7 mg/dl (8.5-10.1); Creatinine Clr Calc Pharmacy 80.7 ml/min; Est GFR (African American) 122.3; Est GFR (Non-African American) 105.5; Magnesium 2.1 mg/dl (1.8-2.4); Phosphorus 2.5 mg/dl (2.5-4.9)
[2019-12-16] MEDS: LEVOTHYROXINE SODIUM 25 MCG TABLET PO SCH (06:20)
[2019-12-16 06:24] LABS: Thyroid Stimulating Hormone 2.88 uIu/ml (0.300-4.500)
[2019-12-16] MEDS ORDERED: bisacodyL 10 MG SUPP PR PRN (07:00)
[2019-12-16] MEDS: SCOPOLAMINE 1.5 MG TDSY TD SCH (08:27)
[2019-12-16] MEDS: CARBIDOPA/LEVODOPA 25/100MG TAB PO SCH ×3 (08:35→20:29)
[2019-12-16] MEDS: QUETIAPINE FUMARATE 25 MG TABLET PO SCH ×3 (08:36→20:29)
[2019-12-16] MEDS: HEPARIN SOD 5,000 UNIT/0.5 ML VIAL SQ SCH ×3 (08:37→19:27)
[2019-12-16] MEDS ORDERED: CHOLECALCIFEROL 1,000 UNITS 25 MCG TAB PO SCH (09:00)
--- NOTE | 2019-12-16 14:33 | Hospitalist Progress Note ---
Date of Service December 16, 2019 Assessment & Plan (1) Sepsis: Mostly due to aspiration pneumonia. Lactate elevated on admission CT chest showed multifocal pulmonary airspace opacities most pronounced within the right lower lobe. The findings likely representing multifocal pneumonia Lactate normalized after gentle hydration Continue Unasyn IV Blood cx pending Continue monitor closely (2) Hypoxia: (3) Aspiration pneumonia: CXR showed right lower lobe airspace opacities suspicious for pneumonia. CT showed multifocal pulmonary airspace opacities most pronounced within the right lower lobe. Speech on board recommended puree diet Continue scopolamine patch Continue Unasyn IV (4) PSP (progressive supranuclear palsy): said that pt did not cough as much here while eating compare to wh en at home Will follow speech recommendation (5) Osteoporosis: Calcium supplentation (6) Severe malnutrition: BMP 14 Will encourage to increase protein intake (7) Hypothyroidism: Cont home Synthroid (8) Dysphagia: chronic, speech eval as noted above. (9) Parkinsons disease: Cont Sinemet per home regimen. (10) Chronic psychosis: Cont home seroquel (11) Constipation: Bisacodyl supp PRN (12) DVT prophylaxis: On heparin subq CODE STATUS DNR Admission and Anticipated Discharge Date Admission Date: December 15, 2019 Subjective Pt was seen and examined Lying in bed with no distress with at bedside said that pt seems to be at her baseline said that pt seems to tolerate her diet better here without coughing after each bites Pt is nonverbal and does not showed any sign of tenderness or discomfort Physical Exam Physical Exam: General- cachectic, frail Head- atraumatic Eyes- PERRL, EOMI, ENT- oropharynx clear Neck- supple, no JVD Lungs- No wheezing or crackles Heart- regular rhythm; no murmur Abdomen- normal bowel sounds, soft, nontender Extremities- no calf tenderness Neuro- awake, disoriented Skin- warm & dry Results & Data Results & Data ([facility]) Vital Signs (Past 12 Hours) Vital Signs Temp Pulse Pulse Pulse Resp BP BP 12/16/19 10:58 36.3 C L 93 H 16 114/62 12/16/19 09:00 83 12/16/19 08:11 36.7 C 81 18 124/72 12/16/19 03:35 36.9 C 85 17 111/63 Pulse Ox 12/16/19 10:58 93 12/16/19 09:00 12/16/19 08:11 96 12/16/19 03:35 97 (1) Aspiration pneumonia Aspiration pneumonia type: unspecified Laterality: right Lung location: unspecified part of lung Qualified Code(s): J69.0 - Pneumonitis due to inhalation of food and vomit (2) Sepsis Sepsis acute organ dysfunction status: unspecified Sepsis type: sepsis due to unspecified organism Qualified Code(s): A41.9 - Sepsis, unspecified organism
[2019-12-16] MEDS: CHOLECALCIFEROL 1,000 UNITS 25 MCG TAB PO SCH (15:04)
--- NOTE | 2019-12-16 22:52 | Electrocardiogram Report ---
Test Reason : Blood Pressure : / mmHG Vent. Rate : 129 BPM Atrial Rate : 129 BPM P-R Int : 140 ms QRS Dur : 094 ms QT Int : 302 ms P-R-T Axes : 070 031 142 degrees QTc Int : 442 ms Poor data quality, interpretation may be adversely affected Sinus tachycardia Left ventricular hypertrophy with repolarization abnormality Abnormal ECG When compared with ECG of 28-MAY-2013 12:28, ST now depressed in Inferolateral leads T wave inversion now evident in Lateral leads ST no longer elevated in Anterior leads Confirmed by Eyal Chandler ([id number]) on 12/16/2019 10:51:54 PM Referred By: REFERRED SELF Confirmed By:Eyal Chandler
[2019-12-17] MEDS: ACETAMINOPHEN 65 ML IV PRN ×3 (00:13→21:29)
[2019-12-17] MEDS: CHECK SCOPOLAMINE PATCH PLACEMENT SCH ×4 (00:15→23:26)
[2019-12-17] MEDS: ACETAMINOPHEN SUSP 325 MG/10.15 ML UDC PO SCH ×4 (00:15→23:26)
[2019-12-17] MEDS: AMPICILLIN/SULBACTAM SOD 3,000 MG in 0.9 % SODIUM CHLORIDE 100 ML IV SCH ×5 (00:15→23:26)
[2019-12-17] MEDS: LEVOTHYROXINE SODIUM 25 MCG TABLET PO SCH (06:27)
[2019-12-17 08:35] LABS: Hematocrit (blood only) 29.4 % (37-47); Hemoglobin 9.5 g/dL (12.0-16.0); Mean Corpuscular Hgb Conc 32.3 g/dL (32-36); Mean Corpuscular Volume 96.1 fL (80-100); Mean Platelet Volume 9.4 fL (7.4-10.4); Platelet Count 250 K/uL (130-400); RDW Coefficient of Variation 14.7 % (11.5-14.5); Red Blood Count 3.06 M/uL (4.2-5.4); White Blood Count 10.47 K/uL (4.8-10.8)
[2019-12-17] MEDS: HEPARIN SOD 5,000 UNIT/0.5 ML VIAL SQ SCH ×2 (10:07→19:03)
[2019-12-17] MEDS: QUETIAPINE FUMARATE 25 MG TABLET PO SCH ×3 (10:07→20:29)
[2019-12-17] MEDS: CARBIDOPA/LEVODOPA 25/100MG TAB PO SCH ×3 (10:08→20:29)
--- NOTE | 2019-12-17 14:22 | Hospitalist Progress Note ---
Date of Service December 17, 2019 Assessment & Plan (1) Sepsis: Mostly due to aspiration pneumonia. Lactate elevated on admission CT chest showed multifocal pulmonary airspace opacities most pronounced within the right lower lobe. The findings likely representing multifocal pneumonia Lactate normalized after gentle hydration Continue Unasyn IV Blood cx no growth Continue monitor closely (2) Hypoxia: (3) Aspiration pneumonia: CXR showed right lower lobe airspace opacities suspicious for pneumonia. CT showed multifocal pulmonary airspace opacities most pronounced within the right lower lobe. Speech on board recommended puree diet Continue scopolamine patch Continue Unasyn IV (4) PSP (progressive supranuclear palsy): said that pt did not cough as much here while eating compare to when at home Speech on board recommended pured diet and crushed meds in carrier Aspiration protocol (5) Osteoporosis: Calcium supplentation (6) Severe malnutrition: BMP 14 Continue to encourage to increase protein intake (7) Hypothyroidism: Cont home Synthroid (8) Dysphagia: Chronic dysphagia that seems to get worst due to the disease process Continue pureed diet and crushed med in chocolate or pudding No tube feeding as per pt wishes Aspiration protocol Palliative care consult for goals of care (9) Parkinsons disease: Cont Sinemet per home regimen. (10) Chronic psychosis: Cont home seroquel (11) Constipation: Bisacodyl supp PRN (12) DVT prophylaxis: On heparin subq CODE STATUS DNR Admission and Anticipated Discharge Date Admission Date: December 15, 2019 Subjective Pt was seen and examined Lying in bed moaning with daughter at bedside Daughter said that is her baseline at home where she is lying in bed moaning She had a bladder scan done with 1L urine seen on bladder scan Spoke to daughter today and would like to talk to palliative care for goals of care Physical Exam Physical Exam: General- cachectic, frail Head- atraumatic Eyes- PERRL, EOMI, ENT- oropharynx clear Neck- supple, no JVD Lungs- Coarses BS Heart- regular rhythm; no murmur Abdomen- normal bowel sounds, soft, nontender Extremities- no calf tenderness Neuro- sleeping Skin- warm & dry Results & Data Results & Data ([facility]) Vital Signs (Past 12 Hours) Vital Signs Temp Pulse Pulse Resp BP BP Pulse Ox 12/17/19 11:09 36.3 C L 86 18 125/88 96 12/17/19 10:50 77 12/17/19 07:34 36.5 C 80 18 131/73 95 12/17/19 03:34 36.6 C 97 H 19 120/72 96 (1) Aspiration pneumonia Aspiration pneumonia type: unspecified Laterality: right Lung location: unspecified part of lung Qualified Code(s): J69.0 - Pneumonitis due to inhalation of food and vomit (2) Sepsis Sepsis acute organ dysfunction status: unspecified Sepsis type: sepsis due to unspecified organism Qualified Code(s): A41.9 - Sepsis, unspecified organism
[2019-12-17] MEDS: CHOLECALCIFEROL 1,000 UNITS 25 MCG TAB PO SCH (15:24)
[2019-12-18] MEDS: AMPICILLIN/SULBACTAM SOD 3,000 MG in 0.9 % SODIUM CHLORIDE 100 ML IV SCH ×4 (06:06→23:30)
[2019-12-18] MEDS: LEVOTHYROXINE SODIUM 25 MCG TABLET PO SCH (06:07)
[2019-12-18] MEDS: HEPARIN SOD 5,000 UNIT/0.5 ML VIAL SQ SCH ×2 (10:38→20:59)
[2019-12-18] MEDS: ACETAMINOPHEN SUSP 325 MG/10.15 ML UDC PO SCH ×3 (10:38→23:29)
[2019-12-18] MEDS: CHECK SCOPOLAMINE PATCH PLACEMENT SCH ×3 (10:38→23:30)
[2019-12-18] MEDS: QUETIAPINE FUMARATE 25 MG TABLET PO SCH ×3 (10:39→21:00)
[2019-12-18] MEDS: CARBIDOPA/LEVODOPA 25/100MG TAB PO SCH ×3 (10:39→21:00)
[2019-12-18] MEDS: CHOLECALCIFEROL 1,000 UNITS 25 MCG TAB PO SCH (13:17)
--- NOTE | 2019-12-18 16:12 | Palliative Care Consultation ---
Date of Consultation December 18, 2019 Assessment & Plan (1) Palliative care encounter: Chart reviewed, patient seen and examined in room 222, patient's daughter, Jaelyn at bedside. Patient's daughter Jaelyn and son Jason both live at home and care for her in addition to paid caregivers. Patient is a 79-year-old female with supranuclear palsy, aspiration, hypothyroidism, failure to thrive, Parkinson's, history of psychosis-on Seroquel who presented to the emergency room on 12/14 due to discomfort, moaning and no bowel movement times a week. Daughter reports that patient had not had a bowel movement for a week prior-was given a Dulcolax suppository with good results, then had not gone again for another week and was uncomfortable so they brought her to the emergency room. Patient normally moves her bowels every few days. Patient was also found to have an O2 sat of 81-increased to 95% on 2 L O2, blood pressure was 99/61 and heart rate 124. White count was not elevated at 3.7, hemoglobin 11.4, platelets 319K. Electrolytes were within normal limits with a BUN of 21 and a creatinine 0.53, glucose was 109. UA was negative, albumin 2.8. -Daughter reports she is cared for at home by paid caregivers as well as herself and her brother. They noted she has been aspirating with coughing after p.o. intake for quite some time-at least months. Daughter reports her cough has been getting weaker. Family is able to transfer patient to bedside commode-they report she has 1 large void during the day-and sometimes that is the only time she voids. They report that she has adequate p.o. intake although it varies, she usually has cereal with a half a banana and 4 to 6 ounces of juice for breakfast, cottage cheese with pured peaches with 4 to 6 ounces of chocolate milk for a snack-most of her p.o. intake usually occurs before lunchtime. At lunchtime they feed her a container of baby food and juice, supper can sometimes be Lebanese yogurt with honey and 4 to 6 ounces of juice. That is her p.o. intake on a good days, unless good days she may eat very little after lunchtime. -Family reports she takes her meds crushed, mentioned that Sinemet is not a medication that "should" be crushed-the family does question as she cannot swallow pills whole. Patient has had the diagnosis of SNP for several years. -Patient was started on IV antibiotics due to a right lower lobe infiltrate- likely aspiration. Patient has had very little p.o. intake since admission. Discussed with daughter at bedside as well as her other daughter, Andie, by phone that aspiration pneumonias will often improve without any treatment. Daughter reports patient is not getting out of bed, a Preciado catheter was placed as nursing feels she is unsafe for transfers to bedside commode. -Daughter reports patient has eaten very little since admission, both patient and daughter indicated they would like to return home as soon as possible. Patient's weight on admission was 80 pounds. -Daughter reports patient's physician has recommended and offered a hospice referral in the past-daughter reports they interviewed a hospice agency and did not feel that they would add anything to her current level of care. -Discussed with daughter that different hospice agencies can offer different modalities-suggested she call her interview several agencies and consider a hospice referral to assist with care at home as well as equipment and supplies. -Family amenable to hospice referral, however feel they would like to get her home as soon as possible, patient indicated by a slight not that she would like to go home tonight. Family amenable to taking her home, and assessing hospice agencies once home. -Patient currently on O2 at 2 L nasal cannula with sats of 97%, if goal is to get patient home tonight, discussed going home without O2 would not be harmful. O2 can be arranged by hospice agency of their choice. -On follow-up visit, daughter seems a little flustered at trying to get patient home tonight, reassured daughter that we will do what ever she feels is best for her mother, if she needs to stay overnight to get things arranged at home that would not be an issue. -We will follow-up in a.m. if patient does not return home tonight. (2) PSP (progressive supranuclear palsy): End-stage, hospice appropriate (3) Hypoxia: Patient not trialed on room air, discussed O2 for comfort only (4) Parkinsons disease: Patient currently on Sinemet at home-family crushes meds -educated daughter that Sinemet is not a medication that should be crushed (5) Severe malnutrition: Due to poor p.o. intake, dysphagia due to advanced SNP History of Present Illness Reason for Consultation: Discuss goals of care, current CODE STATUS is DNR/DNI Requesting Physician: Dr Mcclure Attending Physician: Darshan Mcclure MD History of Present Illness Chart reviewed, patient seen and examined in room 222, patient's daughter, Jaelyn at bedside. Patient's daughter Jaelyn and son Jason both live at home and care for her in addition to paid caregivers. Patient is a 79-year-old female with supranuclear palsy, aspiration, hy pothyroidism, failure to thrive, Parkinson's, history of psychosis-on Seroquel who presented to the emergency room on 12/14 due to discomfort, moaning and no bowel movement times a week. Daughter reports that patient had not had a bowel movement for a week prior-was given a Dulcolax suppository with good results, then had not gone again for another week and was uncomfortable so they brought her to the emergency room. Patient normally moves her bowels every few days. Patient was also found to have an O2 sat of 81-increased to 95% on 2 L O2, blood pressure was 99/61 and heart rate 124. White count was not elevated at 3.7, hemoglobin 11.4, platelets 319K. Electrolytes were within normal limits with a BUN of 21 and a creatinine 0.53, glucose was 109. UA was negative, albumin 2.8. -Daughter reports she is cared for at home by paid caregivers as well as herself and her brother. They noted she has been aspirating with coughing after p.o. intake for quite some time-at least months. Daughter reports her cough has been getting weaker. Family is able to transfer patient to bedside commode-they report she has 1 large void during the day-and sometimes that is the only time she voids. They report that she has adequate p.o. intake although it varies, she usually has cereal with a half a banana and 4 to 6 ounces of juice for breakfast, cottage cheese with pured peaches with 4 to 6 ounces of chocolate milk for a snack-most of her p.o. intake usually occurs before lunchtime. At lunchtime they feed her a container of baby food and juice, supper can sometimes be Lebanese yogurt with honey and 4 to 6 ounces of juice. That is her p.o. intake on a good days, unless good days she may eat very little after lunchtime. -Family reports she takes her meds crushed, mentioned that Sinemet is not a medication that "should" be crushed-the family does question as she cannot swallow pills whole. Patient has had the diagnosis of SNP for several years. -Patient was started on IV antibiotics due to a right lower lobe infiltrate- likely aspiration. Patient has had very little p.o. intake since admission. Discussed with daughter at bedside as well as her other daughter, Andie, by phone that aspiration pneumonias will often improve without any treatment. Daughter reports patient is not getting out of bed, a Preciado catheter was placed as nursing feels she is unsafe for transfers to bedside commode. -Daughter reports patient has eaten very little since admission, both patient and daughter indicated they would like to return home as soon as possible. Patient's weight on admission was 80 pounds. -Daughter reports patient's physician has recommended and offered a hospice referral in the past-daughter reports they interviewed a hospice agency and did not feel that they would add anything to her current level of care. -Discussed with daughter that different hospice agencies can offer different modalities-suggested she call her interview several agencies and consider a hospice referral to assist with care at home as well as equipment and supplies. -Family amenable to hospice referral, however feel they would like to get her home as soon as possible, patient indicated by a slight not that she would like to go home tonight. Family amenable to taking her home, and assessing hospice agencies once home. -Patient currently on O2 at 2 L nasal cannula with sats of 97%, if goal is to get patient home tonight, discussed going home without O2 would not be harmful. O2 can be arranged by hospice agency of their choice. -On follow-up visit, daughter seems a little flustered at trying to get patient home tonight, reassured daughter that we will do what ever she feels is best for her mother, if she needs to stay overnight to get things arranged at home that would not be an issue. -We will follow-up in a.m. if patient does not return home tonight. Allergies Allergy/AdvReac Type Severity Reaction Status Date / Time adhesive Allergy Unknown TAPE - RXN Verified 12/15/19 16:22 UNKNOWN aspirin Allergy Unknown UNKN Verified 12/15/19 16:22 capsaicin Allergy Unknown UNKNOWN Verified 12/15/19 16:22 diclofenac Allergy Unknown UNKNOWN Verified 12/15/19 16:22 Diclopak Allergy Unknown UNKNOWN Verified 05/24/13 13:06 ibuprofen Allergy Unknown CHANGE IN Verified 12/15/19 16:22 MENTAL STATUS latex Allergy Unknown UNKNOWN Verified 12/15/19 16:22 naproxen Allergy Unknown CHANGE IN Verified 12/15/19 16:22 MENTAL STATUS,MADE FEEL CRAZY Home Medications Home Medications Medication Instructions Recorded Confirmed Type acetaminophen [Acetaminophen Extra 500 - 1,000 mg PO TID PRN 12/15/19 12/15/19 History Strength] bisacodyl 10 mg DC DAILY PRN 12/15/19 12/15/19 History carbidopa-levodopa 0.5 tab PO DAILY@1500 12/15/19 12/15/19 History carbidopa-levodopa 1 tab PO BID 12/15/19 12/15/19 History cholecalciferol (vitamin D3) 50 mcg PO DAILY 12/15/19 12/15/19 History docusate sodium [Colace] 100 mg PO QAM PRN 12/15/19 12/15/19 History levothyroxine [Synthroid] 25 mcg PO DAILYBB 12/15/19 12/15/19 History lorazepam 0.5 mg PO DAILY PRN 12/15/19 12/15/19 History magnesium hydroxide [Milk of 30 ml PO QAM PRN 12/15/19 12/15/19 History Magnesia] quetiapine 25 mg PO QAM 12/15/19 12/15/19 History quetiapine 50 mg PO BID@1500,2100 12/15/19 12/15/19 History scopolamine base 1 patch TRANSDERMAL UD 12/15/19 12/15/19 History Patient History Medical History Chronic psychosis Constipation Dysphagia Hypothyroidism Osteoporosis Parkinsons disease Severe malnutrition Social History Smoking Status: Never smoker Hx Alcohol Use: No Hx Substance Use: No Preferred Language: Bangladeshi Communication Ability: Unable Medical Staff Manager Required: No Beliefs That Will Affect Care: None marital status: Current Living Situation: Family Other Information That Helps Us Care for You: No Feels Safe at Home: Yes Safety Concerns: Feels Safe At This Time Review of Systems Review of Systems: Unable to obtain, patient is nonverbal, would rarely nod to simple questions Physical Exam Physical Exam: Patient would open her eyes and appear alert at times during visit, sitting upright in bed on O2, no acute distress HEENT: EOMI, patient would occasionally move her lower jaw, unable to keep her mouth closed, moist mucous membranes Respirations: Unlabored CV: Tachycardic, no edema Abdomen: Soft, nontender, not distended Extremities: Positive muscle wasting, cachectic Skin: Warm to touch Neuro: Nonverbal, family able to understand her needs. Results & Data ([facility]) Vital Signs (Past 12 Hours) Vital Signs Temp Pulse Pulse Resp BP BP Pulse Ox 12/18/19 15:43 98.8 F 102 H 18 144/86 H 97 12/18/19 11:37 98.2 F 97 H 19 139/74 97 12/18/19 08:00 96 H 12/18/19 07:36 98.2 F 91 H 10 L 132/74 99 PG Care Time/CCT Total # of Minutes Spent Total Time Spent with Patient: Total time spent 100 minutes with greater than 50% of the time spent at bedside on 2 separate visits to discuss family's goals of care as well as develop a plan of care. Assisting family with discharge planning and continued care at home. Prolonged Care Time Prolonged Care Time: Yes Total Prolonged Care Time: 30 Coding Level of Care Code [id number] Inpt Consult Level 3 Diagnoses Palliative care encounter Z51.5 PSP (progressive supranuclear palsy) G23.1 Hypoxia R09.02 Parkinsons disease G20 Severe malnutrition E43 Additional Codes Prolonged Care Time - Prolonged Care Time: Yes ([id number]) Time Spent (min) 100 Critical Care Time Prolonged Care Time Prolonged Care Time: Yes Total Prolonged Care Time: 30 100
--- NOTE | 2019-12-18 18:05 | Hospitalist Progress Note ---
Date of Service December 18, 2019 Assessment & Plan (1) Sepsis: Mostly due to aspiration pneumonia. Lactate elevated on admission CT chest showed multifocal pulmonary airspace opacities most pronounced within the right lower lobe. The findings likely representing multifocal pneumonia Lactate normalized after gentle hydration Will discharge Unasyn IV in am Blood cx no growth No additional abx on discharge (2) Hypoxia: (3) Aspiration pneumonia: CXR showed right lower lobe airspace opacities suspicious for pneumonia. CT showed multifocal pulmonary airspace opacities most pronounced within the right lower lobe. Speech on board recommended puree diet Continue scopolamine patch Continue oxygen supplement (4) PSP (progressive supranuclear palsy): said that pt did not cough as much here while eating compare to when at home Speech on board recommended pured diet and crushed meds in carrier Aspiration protocol (5) Osteoporosis: Calcium supplentation (6) Severe malnutrition: BMP 14 Continue to encourage to increase protein intake (7) Hypothyroidism: Cont home Synthroid (8) Dysphagia: Chronic dysphagia that seems to get worst due to the disease process Continue pureed diet and crushed med in chocolate or pudding No tube feeding as per pt wishes Aspiration protocol Palliative care on board for goals of care Plan to transition to home hospice on discharge (9) Parkinsons disease: Cont Sinemet per home regimen. (10) Chronic psychosis: Cont home seroquel (11) Constipation: Bisacodyl supp PRN (12) DVT prophylaxis: On heparin subq CODE STATUS DNR Disposition Discharge home tomorrow Admission and Anticipated Discharge Date Admission Date: December 15, 2019 Subjective Pt was seen and examined Lying sleeping with daughter at bedside Daughter met with palliative care today and pt would like to go home tonight Family will transition to hospice once discharge Case discussed with case management that might not be able to get the hospital bed, oxygen and transportation arranged for tonight Daughter said that palliative team said that pt would be ok without oxygen I informed daughter that patient is breathing comfortable on 2L for now, but I cannot say once off the oxygen if breathing will not get worst Daughter agreed for her to stay for the night and discharge home in the morning Physical Exam Physical Exam: General- cachectic, frail Head- atraumatic Eyes- PERRL, EOMI, ENT- oropharynx clear Neck- supple, no JVD Lungs- Coarses BS Heart- regular rhythm; no murmur Abdomen- normal bowel sounds, soft, nontender Extremities- no calf tenderness Neuro- sleeping Skin- warm & dry Results & Data Results & Data ([facility]) Vital Signs (Past 12 Hours) Vital Signs Temp Pulse Pulse Resp BP BP Pulse Ox 12/18/19 15:43 37.1 C 102 H 18 144/86 H 97 12/18/19 11:37 36.8 C 97 H 19 139/74 97 12/18/19 08:00 96 H 12/18/19 07:36 36.8 C 91 H 10 L 132/74 99 (1) Sepsis Sepsis acute organ dysfunction status: unspecified Sepsis type: sepsis due to unspecified organism Qualified Code(s): A41.9 - Sepsis, unspecified organism (2) Aspiration pneumonia Aspiration pneumonia type: unspecified Laterality: right Lung location: unspecified part of lung Qualified Code(s): J69.0 - Pneumonitis due to inhalation of food and vomit
[2019-12-18] MEDS ORDERED: ACETAMINOPHEN 65 ML IV ONE (23:37)
[2019-12-19] MEDS: LEVOTHYROXINE SODIUM 25 MCG TABLET PO SCH (05:12)
[2019-12-19] MEDS: AMPICILLIN/SULBACTAM SOD 3,000 MG in 0.9 % SODIUM CHLORIDE 100 ML IV SCH (05:58)
[2019-12-19] MEDS: QUETIAPINE FUMARATE 25 MG TABLET PO SCH (07:17)
[2019-12-19] MEDS: CARBIDOPA/LEVODOPA 25/100MG TAB PO SCH (07:17)
[2019-12-19] MEDS: ACETAMINOPHEN SUSP 325 MG/10.15 ML UDC PO SCH (07:17)
[2019-12-19 07:18] LABS: Hemoglobin 9.6 g/dL (12.0-16.0); Mean Corpuscular Hemoglobin 30.7 pg (25-34); Mean Platelet Volume 9.4 fL (7.4-10.4); Platelet Count 293 K/uL (130-400); RDW Coefficient of Variation 14.5 % (11.5-14.5); RDW Standard Deviation 51.6 fL (36.4-46.3); Red Blood Count 3.13 M/uL (4.2-5.4); White Blood Count 7.21 K/uL (4.8-10.8)
[2019-12-19] MEDS: CHECK SCOPOLAMINE PATCH PLACEMENT SCH (07:19)
[2019-12-19] MEDS: HEPARIN SOD 5,000 UNIT/0.5 ML VIAL SQ SCH ×2 (07:20→07:25)
--- NOTE | 2019-12-19 08:41 | Hospitalist Progress Note ---
Date of Service December 19, 2019 Assessment & Plan (1) Sepsis: secondary to Mostly due to aspiration pneumonia. -Lactate elevated on admission -CT chest showed multifocal pulmonary airspace opacities most pronounced within the right lower lobe. The findings likely representing multifocal pneumonia -Lactate normalized after hydration -on 12/18/[address] Mcclure discussed with family of the wishes of patient and family that they would like to be discharged to home with hospice. Dr. Mcclure made prescriptions including oxygen for home use Discharge home with hospice Follow up with your primary care provider Continue oxygen supplement Continue puree diet and crushed medications on carrier with aspiration precaution discharge medication sent to [facility] on [address], [place], [place] of acetaminophen in liquid solution as needed for pain or fever of Miralax (polyethylene glycol) as needed for constipation, senna and docusate in liquid solution as needed for constipation, glycerin suppository as needed for constipation of scopolamine patch every 72 hours as needed for nausea or vomiting or for excessive (oral) secretions of respiratory antibiotics of Augmentin twice a day and Doxycycline twice a day for 10 days (2) Aspiration pneumonia: -management as above (3) Hypoxia: - secondary aspiration pneumonia -management as above (4) PSP (progressive supranuclear palsy): -Speech on board recommend pured diet and crushed meds -palliative note on 12/18/2019 indicated that the PSP is "End-stage, hospice chrissy ropriate" (5) Parkinsons disease: Cont Sinemet per home regimen. (6) Dysphagia: Chronic dysphagia that seems to get worst due to the disease process Continue pureed diet and crushed med in chocolate or pudding No tube feeding as per pt wishes Aspiration protocol Palliative care on board for goals of halfway hospice on discharge (7) Severe malnutrition: with BMI (body mass index) of 14 -as tolerated oral nutritional supplements in context of PSP with aspiration risks (8) Osteoporosis: -as tolerated oral nutritional supplements in context of PSP with aspiration risks (9) Hypothyroidism: -on Synthroid (10) Chronic psychosis: -on seroquel (11) Constipation: -bowel regimen prescribed (12) DVT prophylaxis: On heparin subq while inpatient CODE STATUS DNR Admission and Anticipated Discharge Date Admission Date: December 15, 2019 Subjective Patient's daughter Jaelyn at the bedside and she affirms the plans for discharge to home with hospice as per their and patient's wishes. Patient is frail in appearance. she is awake and does not have audible speech. she moves the mouth and lips to try to speak but medical provider cannot hear her. Patient is awake and appears alert. she is weak. when she is asked to move the extremities, she moves the left upper extremities minimally. As per Jaelyn's request, medical doctor went over discharge medications including bowel regimen and transition to oral antibiotics Review of Systems Review of Systems: Unobtainable due to cognitive status Physical Exam Constitutional: + frail appearing ENMT: external ear and nose normal, oropharynx normal Neck: trachea midline, no thyromegaly normal visual inspection Respiratory: normal respiratory effort Cardiovascular: Rate/Rhythm: regular rate and regular rhythm Gastrointestinal (Abdomen): Inspection/Auscultation: normal bowel sounds Percussion/Palpation: abdomen soft Musculoskeletal: Head/Neck/Chest: normocephalic Neurologic: awake but weak in appearance and moves minimally the left upper extremity when asked Results & Data Results & Data ([facility]) Vital Signs (Past 12 Hours) Vital Signs Temp Pulse Pulse Resp BP BP Pulse Ox 12/19/19 07:29 36.8 C 72 12 125/67 99 12/19/19 03:43 36.7 C 85 18 132/73 98 12/18/19 23:57 36.6 C 89 18 140/73 94 12/18/19 23:00 94 H (1) Aspiration pneumonia Aspiration pneumonia type: unspecified Laterality: right Lung location: unspecified part of lung Qualified Code(s): J69.0 - Pneumonitis due to inhalation of food and vomit (2) Sepsis Sepsis acute organ dysfunction status: unspecified Sepsis type: sepsis due to unspecified organism Qualified Code(s): A41.9 - Sepsis, unspecified organism
--- NOTE | 2019-12-19 08:50 | Discharge Summary ---
Date of Service December 19, 2019 Admission HPI Per Admitting Provider 79 yo F with progressive nuclear palsy who has difficulty with expressing herself verbally, was moaning and making distress sound to her kids who are her main caretakers. She was having dysphagia and multiple issues of choking and coughing in tje last few weeks. She was recently put on scopalamine to help with excessive secretions. She has not had a BM in a week and was backed up on imaging. The patient appears exhausted and generally very weak. Principal Diagnosis Sepsis Hypoxia Aspiration pneumonia PSP (progressive supranuclear palsy) Osteoporosis Severe malnutrition Dysphagia Discharge Exam Constitutional + frail appearing ENMT external ear and nose normal, oropharynx normal Neck trachea midline, no thyromegaly normal visual inspection Respiratory normal respiratory effort Cardiovascular Rate/Rhythm: regular rate and regular rhythm Gastrointestinal (Abdomen) Inspection/Auscultation: normal bowel sounds Percussion/Palpation: abdomen soft Musculoskeletal Head/Neck/Chest: normocephalic Discharge Data Allergies Allergy/AdvReac Type Severity Reaction Status Date / Time adhesive Allergy Unknown TAPE - RXN Verified 12/15/19 16:22 UNKNOWN aspirin Allergy Unknown UNKN Verified 12/15/19 16:22 capsaicin Allergy Unknown UNKNOWN Verified 12/15/19 16:22 diclofenac Allergy Unknown UNKNOWN Verified 12/15/19 16:22 Diclopak Allergy Unknown UNKNOWN Verified 05/24/13 13:06 ibuprofen Allergy Unknown CHANGE IN Verified 12/15/19 16:22 MENTAL STATUS latex Allergy Unknown UNKNOWN Verified 12/15/19 16:22 naproxen Allergy Unknown CHANGE IN Verified 12/15/19 16:22 MENTAL STATUS,MADE FEEL CRAZY Consultations 12/15/19 17:08 ED Decision to Admit Stat 12/15/19 22:30 Consult Case Management - Discharge Planning Routine 12/17/19 11:33 Consult Palliative Care Routine Ordered Studies 12/15/19 15:56 CT abd pelvis IV con only Stat Hospital Course (1) Sepsis: secondary to Mostly due to aspiration pneumonia. -Lactate elevated on admission -CT chest showed multifocal pulmonary airspace opacities most pronounced within the right lower lobe. The findings likely representing multifocal pneumonia -Lactate normalized after hydration -on 12/18/[address] Mcclure discussed with family of the wishes of patient and family that they would like to be discharged to home with hospice. Dr. Mcclure made prescriptions including oxygen for home use Discharge home with hospice Follow up with your primary care provider Continue oxygen supplement Continue puree diet and crushed medications on carrier with aspiration precaution discharge medication sent to [facility] on [address], [place] of acetaminophen in liquid solution as needed for pain or fever of Miralax (polyethylene glycol) as needed for constipation, senna and docusate in liquid solution as needed for constipation, glycerin suppository as needed for constipation of scopolamine patch every 72 hours as needed for nausea or vomiting or for excessive (oral) secretions of respiratory antibiotics of Augmentin twice a day and Doxycycline twice a day for 10 days (2) Aspiration pneumonia: -management as above (3) Hypoxia: - secondary aspiration pneumonia -management as above (4) PSP (progressive supranuclear palsy): -Speech on board recommend pured diet and crushed meds -palliative note on 12/18/2019 indicated that the PSP is "End-stage, hospice appropriate" (5) Parkinsons disease: Cont Sinemet per home regimen. (6) Dysphagia: Chronic dysphagia that seems to get worst due to the disease process Continue pureed diet and crushed med in chocolate or pudding No tube feeding as per pt wishes Aspiration protocol Palliative care on board for goals of long term hospice on discharge (7) Severe malnutrition: with BMI (body mass index) of 14 -as tolerated oral nutritional supplements in context of PSP with aspiration risks (8) Osteoporosis: -as tolerated oral nutritional supplements in context of PSP with aspiration risks (9) Hypothyroidism: -on Synthroid (10) Chronic psychosis: -on seroquel (11) Constipation: -bowel regimen prescribed (12) DVT prophylaxis: On heparin subq while inpatient CODE STATUS DNR Total Time Total Time Spent Total Time Spent (In Minutes): 40 minutes Total Time Includes: Examination of the Patient, Discharge Planning, Medication Reconciliation and Communication With Other Providers Discharge Plan Discharge Items Patient Disposition: Hospice - Home Reason For Visit: SEPSIS,ASPIRATION PNA Discharge Diagnosis: Sepsis: Hypoxia: Aspiration pneumonia: PSP (progressive supranuclear palsy) Osteoporosis: Severe malnutrition: Dysphagia: Condition on Discharge: Fair Activity: Resume your previous activity Non-emergency contact: Primary Care Provider Call non-emergency contact if: you have any medication questions Follow-up/Referrals: Kassandra Johnson MD [Primary Care Provider] - 12/25/19 9:40 am (Date & Time 12/25/2019 9:40 AM Provider Kassandra Johnson MD Department Internal Medicine [facility] ) Diet: Other - See Diet Comment Diet Texture: Pureed (blended smooth) Addtl Attending Provider Instructions: Discharge home with hospice Follow up with your primary care provider Continue oxygen supplement Continue puree diet and crushed medications on carrier with aspiration precaution; -as tolerated oral nutritional supplements in context of PSP (progressive supranuclear palsy) with aspiration risks discharge medication sent to [facility] on [address] [place] [address] of acetaminophen in liquid solution as needed for pain or fever of Miralax (polyethylene glycol) as needed for constipation, senna and docusate in liquid solution as needed for constipation, glycerin suppository as needed for constipation of scopolamine patch every 72 hours as needed for nausea or vomiting or for excessive (oral) secretions of respiratory antibiotics of Augmentin twice a day and Doxycyline twice a day for 10 days Addtl Band Salvager Provider Instructions: discharge medication sent to [facility] on [address] [place] [address] of acetaminophen in liquid solution as needed for pain or fever of Miralax (polyethylene glycol) as needed for constipation, senna and docusate in liquid solution as needed for constipation, glycerin suppository as needed for constipation of scopolamine patch every 72 hours as needed for nausea or vomiting or for excessive (oral) secretions of respiratory antibiotics of Augmentin twice a day and Doxycyline twice a day for 10 days Pending Studies at Discharge: No Stand-Alone Forms: My [facility] Medications and DC Order Prescriptions: New acetaminophen 325 mg/10.15 mL Suspension 325 mg PO Q8H 5 Days Qty: 152.25 RF: 0 docusate sodium 50 mg/5 mL liquid 100 mg PO BID 30 Days Qty: 600 RF: 0 polyethylene glycol 3350 [Miralax] 17 gram Powder In Packet 17 g PO DAILY PRN (Reason: constipation) 30 Days Qty: 30 RF: 0 scopolamine base [Transderm-Scop] 1 mg over 3 days Patch 3 Day 1 mg transdermal Q72H PRN (Reason: nausea and vomiting) 10 Days Qty: 30 RF: 0 doxycycline hyclate 100 mg Capsule 100 mg PO BID 10 Days Qty: 20 RF: 0 amoxicillin-pot clavulanate [Augmentin] 875-125 mg Tablet 1 tab PO BIDM 10 Days Qty: 20 RF: 0 senna 176 mg/5 mL syrup 10 ml PO DAILY 30 Days Qty: 300 RF: 0 glycerin (adult) Suppository 1 supp IN DAILY PRN (Reason: constipation) 30 Days Qty: 24 RF: 0 Continued levothyroxine [Synthroid] 25 mcg tablet 25 mcg PO DAILYBB RF: 0 lorazepam 0.5 mg tablet 0.5 mg PO DAILY PRN (Reason: Anxiety) RF: 0 quetiapine 50 mg tablet 25 mg PO QAM RF: 0 cholecalciferol (vitamin D3) 50 mcg (2,000 unit) Tablet 50 mcg PO DAILY RF: 0 carbidopa-levodopa 25-100 mg tablet 1 tab PO BID RF: 0 carbidopa-levodopa 25-100 mg tablet 0.5 tab PO DAILY@1500 RF: 0 quetiapine 50 mg tablet 50 mg PO BID@1500,2100 RF: 0 bisacodyl 10 mg IN DAILY PRN (Reason: Constipation) RF: 0 Discontinued acetaminophen [Acetaminophen Extra Strength] 500 mg Tablet 500 - 1,000 mg PO TID PRN (Reason: Fever Or Pain) RF: 0 scopolamine base 1 mg over 3 days patch 3 day 1 patch transdermal UD RF: 0 magnesium hydroxide [Milk of Magnesia] 400 mg/5 mL Suspension 30 ml PO QAM PRN (Reason: Constipation) RF: 0 docusate sodium [Colace] 100 mg Capsule 100 mg PO QAM PRN (Reason: Constipation) RF: 0 Discharge Orders: Discharge Order (Routine); Ordered 12/19/19 Ordered By: Tor Rousseau/Other Patient Handouts: Dysphagia Aspiration, Dysphagia Diet- Managing Drinks, Dysphagia Diet- Managing Foods, Dysphagia Aspiration Tx Admission Data Admit Date/Time: 12/15/19 18:20 Attending Provider: Tor Hernadez Admit Provider: Martine Tse Primary Care Provider: Kassandra Johnson Other Providers: Martine Tse ; Chantal Erickson
[2019-12-19] MEDS ORDERED: DOXYCYCLINE HYCLATE 100 MG CAP PO SCH (09:00)
[2019-12-19] MEDS: SCOPOLAMINE 1.5 MG TDSY TD SCH (09:38)
[2019-12-19] MEDS ORDERED: PANTOprazole 40 MG in SYRINGE 0 ML IV SCH (10:45)
[2019-12-19] MEDS ORDERED: AMOXICILLIN/CLAVULANATE 875 MG TAB PO SCH (17:00)
== END 2019-12-19 16:04 | disposition hospice, home (50) | DRG 871 ==
LOC: ED 15:38 → 2S 18:20 → SUATTDRO 18:20 → 2S 21:49